=== PATIENT | female | born 1980 | race Caucasian/White ===

== ENCOUNTER 2023-05-17 06:05 | Outpatient (REF) | payer OTHER, SELFPAY ==
[2023-05-17 11:38] LABS: MANUAL DIFF FLAG NO
[2023-05-17 11:43] LABS: Basophils Absolute Auto 0.1 X10*3/uL (0.0-0.2); Eosinophils Absolute Auto 0.1 X10*3/uL (0.0-0.4); Eosinophils Percent Auto 2.2 % (0-4); Hematocrit 42.4 % (37.0-47.0); Hemoglobin 14.5 g/dl (12.0-16.0); Imm Gran Abs Auto 0.02 X10*3/uL (0.00-0.03); Imm Gran Pct Auto 0.4 % (0.0-0.4); Lymphocytes Absolute Auto 1.8 X10*3/uL (1.2-4.9); Lymphocytes Percent Auto 35.2 % (20-40); Mean Corpuscular HGB Conc 34.2 g/dl (31.0-35.0); Mean Corpuscular Hemoglobin 28.9 pg (27.0-33.0); Mean Corpuscular Volume 84.6 fL (80.0-98.0); Monocytes Absolute Auto 0.5 X10*3/uL (0.1-1.2); Monocytes Percent Auto 8.9 % (2-11); Neutrophils Absolute Auto 2.7 x10*3/uL (2.0-8.3); Neutrophils Percent Auto 52.3 % (45-73); Platelet Count 277 X10*3/uL (160-400); Red Blood Count 5.01 X10*6/uL (4.20-5.50); White Blood Count 5.1 X10*3/uL (4.8-10.8)
[2023-05-17 11:55] LABS: Estimated Average Glucose 114 mg/dL; Hemoglobin A1c % 5.6 % (<6.0)
[2023-05-17 12:12] LABS: Alanine Aminotransferase 38 U/L (0-31); Albumin Level 4.2 g/dL (3.5-5.0); Alkaline Phosphatase 46 U/L (39-117); Anion Gap 13 (12-20); Aspartate Amino Transferase 23 U/L (5-31); Bilirubin Total 0.4 mg/dL (0.0-1.0); Blood Urea Nitrogen 16 mg/dL (9-16); Calcium 9.5 mg/dL (8.4-10.2); Carbon Dioxide 25 mmol/L (22-29); Chloride 105 mmol/L (96-108); Cholesterol 230 mg/dL (<200); Estimated Glomerular Filt Rate > 60; Glucose Fasting 83 mg/dL (60-99); HDL Cholesterol 43 mg/dL (>40); LDL Cholesterol Calculated 154 mg/dL (<100); Potassium 3.8 mmol/L (3.3-5.1); Sodium 139 mmol/L (135-145); Total Protein 7.9 g/dL (6.5-8.0); Triglycerides 166 mg/dL (<150)
[2023-05-17 12:31] LABS: Free T4 (Free Thyroxine) 0.96 ng/dL (0.71-1.85); Thyroid Stimulating Hormone 2.06 uIU/mL (0.32-4.0)
== END 2023-05-17 06:06 | disposition home or self-care (01) ==
LOC: HO.HMGCLDS 06:05
PROVIDERS: Visit Provider Psychiatry & Neurology Psychiatry
DX: F31.30 Bipolar disorder, current episode depressed, mild or moderate severity, unspecified (principal)
CPT/HCPCS: 36415; 80053; 80061; 83036; 84439; 84443; 85025

== ENCOUNTER 2023-05-23 10:00 | Outpatient (RCR) | payer OTHER, SELFPAY ==
[2023-05-09 13:04] VITALS: BMI 32.6
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
[2023-05-09 14:24] VITALS: BP 110/80; PULSE 80; TEMP 37.2
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
--- NOTE | 2023-05-11 18:01 | HO.PHP ---
Client's case has been opened and reviewed in treatment team.
--- NOTE | 2023-05-16 21:59 | HO.PHPPROGNO ---
Subjective Subjective Date of Service: 05/16/23 Reason For Visit: depression,anxiety Interim History: Reports feeling less impulsive and calmer . SHe notes that she normally talks fast and says that family have noticed that she is talking more normal > Reports improvements in irritability, not rreacting angrily. She notes she is still tearful at times and depressive feeling hang in there. Her energy is feeling more level She appears calmer and less intense today. Sleep is improving, I like it . Says she is not drowsy, wakes feeling rested in AM. Concentration is still an issues, I'm very distractible . Reports being forgetful, and trouble staying organzied. Concerns about returning to work and managing stress and frustration. Mental Status Exam Mental Status Exam Narrative: Alert, oriented, in no acute distress. Intense, animated, disinibited, but cooperative, engaged. Eye contact maintained. Mood irritable, labile, affect bright, elevated, labile. Speech loud, mildly pressured. Thought process circumstantial, expansive. Thought content related to stressors, denies any helplessness, hopelessness or SI. No aggressive ideation or HI. No paranoia or delusional content elicited. No evidence of psychosis. Insight and judgment fair but adequate. Diagnostics Vital Signs (24Hr): BMI result Body Mass Index 32.6 Assessment & Plan Assessment & Plan (1) Bipolar affective disorder, mixed, moderate: Status: Acute Code(s): F31.62 - Bipolar disorder, current episode mixed, moderate (2) PTSD (post-traumatic stress disorder): Status: Acute Code(s): F43.10 - Post-traumatic stress disorder, unspecified (3) Other mixed anxiety disorders: Status: Acute Code(s): F41.3 - Other mixed anxiety disorders (4) Alcohol abuse: Status: Acute Code(s): F10.10 - Alcohol abuse, uncomplicated Plan continue treatment titration of Lamictal, scheduled to move to 50 mg in upcoming days oxcarbazepine 600 mg BID metformin 250 mg BID continue other regular medication pending lab work Patient educated on: diagnosis, medication risk/benefits and substance abuse Informed Consent: understands Reason for contiued partial hosp. stay Substantial Risk for: rapid decompensation and med/psych decompensation Certification I certify that partial hospital treatment is medically necessary due to the symptoms and problems resulting from the patient's mental illness and the failure to treat the patient at the partial hospital level of care would likely result in the patient requiring inpatient psychiatric care which could not be prevented at a less intensive level of care. Total time managing care of this patient today ____ minutes. Discharge Plan Discharge Attending provider: No Hawkins Medications: New lamotrigine 25 mg tablet See Rx Instructions .ROUTE .COMPLEX 42 Days Qty: 100 0RF Rx Instructions: take 1 tablet po daily for 2 weeks, then increase to 2 tablets po daily for 2 weeks, then increase to 3 tablet po daily Continued amlodipine 5 mg tablet 5 mg PO DAILY ferrous sulfate 325 mg (65 mg iron) tablet 325 mg PO DAILY losartan 25 mg tablet 25 mg PO DAILY aripiprazole 5 mg tablet 5 mg PO DAILY Qty: 20 0RF metformin 500 mg tablet 250 mg PO BID Qty: 20 0RF Changed oxcarbazepine 600 mg tablet 600 mg PO BID Qty: 40 0RF Discontinued trazodone 100 mg tablet 50 - 100 mg PO BEDTIME Patient Comments: Patient education provided, will try to take prior to bed moving forward. Stand Alone Forms: Patient Portal Discharge page Patient Education: Bipolar Disorder (DC)
--- NOTE | 2023-05-23 20:12 | HO.PHPPROGNO ---
Subjective Subjective Date of Service: 05/23/23 Reason For Visit: depression,anxiety Interim History: Patient seen for follow-up, anticipating discharge at the end of program today.? She stopped the Wellbutrin over the weekend, she had been feeling more labile on it. She is feeling more level now. She continues on Lamictal and Trileptal. Anger has been more controlled. Some residual irritbaility, but feeling less frustration. She is increasing Trileptal to 600 mg BID as per treatment plan. She has been feeling less impulsive and some notable improvement in concentration. She continues with titration of Lamictal as per treatment plan. Otherwise denies any adverse effects with medications. Medication compliant. DEnies any other acute issues or concerns. Mood is better .?Still dealing with significant psychosocial stressors which can be overwhelming. FEels better equipped to deal with stress. Denies any hopelessness or SI. Denies thoughts of harming self or others at this time. Denies any aggressive ideation or HI. Denies any AH or VH. Sleep, appetite, energy are stable. Medication Compliance: Yes Side effects from medications: Yes (as noted, Wellbutrin was stopped) Attending Groups: Yes Review of Systems Acute medical concerns: No Mental Status Exam Mental Status Exam Narrative: Alert, oriented, in no acute distress. Calm, cooperative. Mood less irritable, less labile, affect intense, variable. Speech normal. Thought process circumstantial, coherent. Thought content related to stressors, denies any helplessness, hopelessness or SI.? No aggressive ideation or HI. No paranoia or delusional content elicited. No evidence of psychosis. Insight and judgment fair but adequate. Diagnostics Vital Signs (24Hr): BMI result Body Mass Index 32.6 Assessment & Plan Assessment & Plan (1) Bipolar affective disorder, mixed, moderate: Status: Acute Code(s): F31.62 - Bipolar disorder, current episode mixed, moderate (2) PTSD (post-traumatic stress disorder): Status: Acute Code(s): F43.10 - Post-traumatic stress disorder, unspecified (3) Other mixed anxiety disorders: Status: Acute Code(s): F41.3 - Other mixed anxiety disorders (4) Alcohol abuse: Status: Acute Code(s): F10.10 - Alcohol abuse, uncomplicated Plan Discharge from [facility] reviewed recent lab work findings continue treatment titration of Lamictal, scheduled to move to 50 mg in upcoming days oxcarbazepine 600 mg BID metformin 250 mg BID continue other regular medication will defer further medication management to outpatient provider Refills sent to pharmacy Patient educated on: diagnosis, medication risk/benefits and substance abuse Informed Consent: understands Reason for contiued partial hosp. stay Substantial Risk for: stable for discharge Certification I certify that partial hospital treatment is medically necessary due to the symptoms and problems resulting from the patient's mental illness and the failure to treat the patient at the partial hospital level of care would likely result in the patient requiring inpatient psychiatric care which could not be prevented at a less intensive level of care. Total time managing care of this patient today __30__ minutes. Discharge Plan Discharge Attending provider: No Hawkins Medications: New metformin 500 mg tablet 250 mg PO BID 30 Days Qty: 30 0RF lamotrigine 25 mg tablet See Rx Instructions .ROUTE .COMPLEX 42 Days Qty: 100 0RF Rx Instructions: take 1 tablet po daily for 2 weeks, then increase to 2 tablets po daily for 2 weeks, then increase to 3 tablet po daily Continued amlodipine 5 mg tablet 5 mg PO DAILY ferrous sulfate 325 mg (65 mg iron) tablet 325 mg PO DAILY losartan 25 mg tablet 25 mg PO DAILY aripiprazole 5 mg tablet 5 mg PO DAILY Changed oxcarbazepine 600 mg tablet 600 mg PO BID Qty: 30 0RF Discontinued trazodone 100 mg tablet 50 - 100 mg PO BEDTIME Patient Comments: Patient education provided, will try to take prior to bed moving forward. Stand Alone Forms: Patient Portal Discharge page Patient Education: Bipolar Disorder (DC)
== END 2023-05-23 23:59 | disposition home or self-care (01) ==
LOC: HO.PHPA 10:00
PROVIDERS: Visit Provider Psychiatry & Neurology Psychiatry
DX: F31.62 Bipolar disorder, current episode mixed, moderate (principal); F43.10 Post-traumatic stress disorder, unspecified; F41.3 Other mixed anxiety disorders; F10.10 Alcohol abuse, uncomplicated; Z79.899 Other long term (current) drug therapy
CPT/HCPCS: 90791; 90853

== ENCOUNTER → 2023-05-23 10:00 | Outpatient (BNV) | payer OTHER, SELFPAY | PROVIDERS: Visit Provider Psychiatry & Neurology Psychiatry | DX: F31.62 Bipolar disorder, current episode mixed, moderate (principal); F43.10 Post-traumatic stress disorder, unspecified; F41.3 Other mixed anxiety disorders; F10.10 Alcohol abuse, uncomplicated | CPT/HCPCS: 90792; 99213 ==